=== PATIENT | female | born 1990 | race American Indian/Alaskan Native ===

== ENCOUNTER 2017-10-12 11:49 | Emergency (ER) | payer OTHER, MEDICAID ==
[2017-10-12 12:00] VITALS: BP 122/74
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
[2017-10-12 15:39] LABS: HCG Qualitative,Urine Negative (Negative)
[2017-10-12] MEDS ORDERED: MOTRIN PO ONE (16:07)
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
[2017-10-12] MEDS ORDERED: TYLENOL PO ONE (18:37)
[2017-10-12] MEDS ORDERED: CLEOCIN PO ONE (18:40)
== END 2017-10-12 18:58 | disposition home or self-care (01) ==
LOC: ED 11:49
DX: M54.5 Low back pain (principal); K04.7 Periapical abscess without sinus; M25.572 Pain in left ankle and joints of left foot; M79.1 Myalgia; F17.200 Nicotine dependence, unspecified, uncomplicated; V49.49XA Driver injured in collision with other motor vehicles in traffic accident, initial encounter; Y93.89 Activity, other specified; Y92.89 Other specified places as the place of occurrence of the external cause; Y99.8 Other external cause status
CPT/HCPCS: 70355; 72100; 81025; 99284